=== PATIENT | female | born 1975 | race Two or more races ===

== ENCOUNTER 2022-01-06 10:54 | Emergency (ER) | payer OTHER ==
--- OUTSIDE RECORDS SUMMARY | 2022-01-06 10:57 | XMS REPORT | Continuity of Care Document ---
:1975 Author Organization [facility] t Address [address] [place] [address] Care Team Providers Name Role Phone Brook Bee Attending Clinician Unavailable Hubert SMITH Attending Clinician HUBERT Attending Clinician Unavailable Estelle Attending Clinician Cy SMITH, Marley Attending Clinician Unavailable Payers Payer Name Policy Type Policy Number Effective Date Expiration Date S ource Problems Condition Condition Condition Status Onset Resolution Last Treating Co mments Source Name Details Category Date Date Treatment Clinician Date Adrenal Adrenal Disease Active 2015-08 Univers insufficie insufficie 1-07 it y of ncy, ncy, 00:00: [place] primary primary 00 Medical Branch Primary Primary Disease Active Univers hypothyroi hypothyroi 2-23 it y of dism dism 00:00: [place] [address] Medical Branch Primary Primary Disease Active Univers hypothyroi hypothyroi 2-23 it y of dism dism 00:00: [place] [address] Medical Branch Multiple Multiple Disease Active Unive rs thyroid thyroid 2- ity of nodules nodules 00:00: [address] Allergies, Adverse Reactions, Alerts Allergy Allergy Status Severity Reaction(s) Onset Inactive Treating Comm ents Source Name Type Date Date Clinician NO KNOWN Drug Active Univers ALLERGIE Class ity of S [facility] Social History Social Habit Start Date Stop Date Quantity Comments Source Tobacco use and 2019-07-24 2019-07-24 Never used Universit y of exposure 00:00:00 00:00:00 [facility] Alcohol intake 2019-07-24 2019-07-24 Current University of 00:00:00 00:00:00 non-drinker of [facility] alcohol [place] (finding) Sex Ass[birth year] Universit y of 00:00:00 00:00:00 [facility] Smoking Status Start Date Stop Date Source Never smoker [facility] Medications Ordered Filled Start Stop Current Ordering Indication Dosage Frequency Signature Comments Components Source Medication Medication Date Date Medication? Clinician (SIG) Name Name SYNTHROID 2020- Yes [id number] TAKE 1 Un kaye 88 mcg 0-07 TABLET BY ity of tablet 00:00: MOUTH [place] 00 EVERY DAY Medical IN THE [place] MORNING SYNTHROID 2020-1 Yes [id number] TAKE 1 Un kaye 88 mcg 0-07 TABLET BY ity of tablet 00:00: MOUTH [place] 00 EVERY DAY Medical IN THE [place] MORNING SYNTHROID 2020- Yes [id number] TAKE 1 Un kaye 88 mcg 0-07 TABLET BY ity of tablet 00:00: MOUTH [place] 00 EVERY DAY Medical IN THE [place] MORNING SYNTHROID 2020-1 Yes [id number] TAKE 1 Un kaye 88 mcg 0-07 TABLET BY ity of tablet 00:00: MOUTH [place] 00 EVERY DAY Medical IN THE [place] MORNING SYNTHROID 2020-1 Yes [id number] TAKE 1 Un akye 88 mcg 0-07 TABLET BY ity of tablet 00:00: MOUTH [place] 00 EVERY DAY Medical IN THE [place] MORNING Azithromyci Azithromyci 2020-0 2020- No Na Bee 2 tablets Common n n 8-17 08-18 Spirit 00:00: 00:00 - [facility] 00 :00 [facility] levothyroxi 2020-0 Yes [id number] 88ug Take 1 Univers ne 7-06 tablet by ity of (SYNTHROID) 00:00: mouth [place] 88 mcg 00 every Medical tablet morning. Branch levothyroxi 2020-0 Yes [id number] 88ug Take 1 Univers ne 7-06 tablet by ity of (SYNTHROID) 00:00: mouth [place] 88 mcg 00 every Medical tablet morning. [place] levothyroxi 2020-0 Yes [id number] 88ug Take 1 Univers ne 7-06 tablet by ity of (SYNTHROID) 00:00: mouth [place] 88 mcg 00 every Medical tablet morning. [place] levothyroxi 0 Yes [id number] 88ug Take 1 Univers ne 7-06 tablet by ity of (SYNTHROID) 00:00: mouth [place] 88 mcg 00 every Medical tablet morning. [place] levothyroxi 0 2020- No [id number] 88ug Take 1 Univers ne 7- 10-07 tablet by ity of (SYNTHROID) 00:00[place] 00[place] 88 [place] 00 :00 every Medical tablet morning. [place] levothyroxi 0 2020- No [id number] 88ug Take 1 Univers ne 7- 10-07 tablet by ity of (SYNTHROID) 00:00[place] 00:[place] 88 m[place] 00 :00 every Medical tablet morning. [place] hydrocortis 2018-08 Yes [id number] Take one Univers one 10 mg 2-23 tablet at ity o f tablet 00:00: 7-8 am and [place] 00 half a Medical tablet at Branch 2-3 PM levothyroxi 2018-08 Yes [id number] 88ug Take 1 Univers ne 2-23 tablet by ity of (SYNTHROID) 00:00: mouth [place] 88 mcg 00 every Medical tablet morning. [place] hydrocortis 2018-08 Yes [id number] Take one Univers one 10 mg 2-23 tablet at ity o f tablet 00:00: 7-8 am and [place] 00 half a Medical tablet at Branch 2-3 PM hydrocortis 2018-08 Yes [id number] Take one Univers one 10 mg 2-23 tablet at ity o f tablet 00:00: 7-8 am and [place] 00 half a Medical tablet at Branch 2-3 PM hydrocortis 2018-08 Yes [id number] Take one Univers one 10 mg 2-23 tablet at ity o f tablet 00:00: 7-8 am and [place] 00 half a Medical tablet at Branch 2-3 PM hydrocortis 2018-08 Yes [id number] Take one Univers one 10 mg 2-23 tablet at ity o f tablet 00:00: 7-8 am and [place] 00 half a Medical tablet at Branch 2-3 PM hydrocortis 2018-08 Yes [id number] Take one Univers one 10 mg 2-23 tablet at ity o f tablet 00:00: 7-8 am and [place] 00 half a Medical tablet at Branch 2-3 PM hydrocortis 2018-08 Yes [id number] Take one Univers one 10 mg 2-23 tablet at ity o f tablet 00:00: 7-8 am and [place] 00 half a Medical tablet at Branch 2-3 PM hydrocortis 2019 Yes [id number] Take one Univers one 10 mg 2-23 tablet at ity o f tablet 00:00: 7-8 am and [place] 00 half a Medical tablet at Branch 2-3 PM hydrocortis 2018-08 Yes [id number] Take one Univers one 10 mg 2-23 tablet at ity o f tablet 00:00: 7-8 am and [place] 00 half a Medical tablet at Branch 2-3 PM hydrocortis 2018-08 Yes [id number] Take one Univers one 10 mg 2-23 tablet at ity o f tablet 00:00: 7-8 am and [place] 00 half a Medical tablet at Branch 2-3 PM levothyroxi 2018-08 2020- No [id number] 88ug Take 1 Univers ne 2-23 07-06 tablet by ity of (SYNTHROID) 00:00[place] 00:[place] 88 mcg 00 :00 every Medical tablet morning. [place] SYNTHROID Yes [id number] TAKE 1 Un kaye 88 mcg 8-28 TABLET BY ity of tablet 00:00: MOUTH [place] 00 EVERY Medical MORNING Branch Metronidazo Metronidazo 2017-08 2020- No Na Bee 1 tablet Common le le 0-04 08-13 Spirit 00:00: 00:00 - CHI 00 :00 [facility] hydrocortis Yes [id number] Take one Univers one 10 mg 9-19 tablet at ity o f tablet 00:00: 7-8 am and [place] 00 half a Medical tablet at Branch 2-3 PM levothyroxi 2019- No [id number] 88ug Take 1 Univers ne 9-19 08-28 tablet by ity of (SYNTHROID) 00:00: 00:[place] 88 mcg 00 :00 every Medical tablet morning. [place] Levothyroxi Levothyroxi Yes Na Bee 1 tablet Common ne Sodium ne Sodium 2-14 on an Spir it 00:00: empty - CHI 00 stomach in [facility] Xanax Xanax Yes Na Bee 1 tablet Common [facility] Lexapro Lexapro Yes Na Bee 1 tablet Co mmon [facility] Sertraline Sertraline Yes Na Bee 1 tablet Common HCl HCl [facility] Immunizations Ordered Filled Immunization Date Status Comments Sour e Immunization Name Name Influenza Virus 2019-05-24 Completed Universit y of Vaccine 00:00:00 [facility] Influenza Virus 2019-05-24 Completed Universit y of Vaccine 00:00:00 [facility] Influenza Virus 2019-05-24 Completed Universit y of Vaccine 00:00:00 [facility] Influenza Virus 2019-05-24 Completed Universit y of Vaccine 00:00:00 [facility] Influenza Virus 2019-05-24 Completed Universit y of Vaccine 00:00:00 [facility] Influenza Virus 2019-05-24 Completed Universit y of Vaccine 00:00:00 [facility] Influenza Virus 2019-05-24 Completed Universit y of Vaccine 00:00:00 [facility] Influenza Virus 2019-05-24 Completed Universit y of Vaccine 00:00:00 [facility] Influenza Virus 2019-05-24 Completed Universit y of Vaccine 00:00:00 [facility] Influenza Virus 2019-05-24 Completed Universit y of Vaccine 00:00:00 [facility] Afluria single dose Afluria single dose 2019-04-11 Completed Common Spirit - 00:00:00 [facility] Procedures This patient has no known procedures. Encounters Start End Encounter Admission Attending Care Care Encounter Source Date/Time Date/Time Type Type Clinicians Facility Department ID 2021-12-31 Outpatient Bee, Na STLC STLC [id number] Common 15:13:01 [facility] 2021-10-09 Outpatient Bee, Na STLC STLC [id number] 2 Common 09:38:01 [facility] 2021-10-07 Outpatient Bee, Na STLMLC STLC [id number] 2 Common 10:35:00 [facility] 2021-08-27 Outpatient Bee, Na STLC STLC [id number] 2 Common 13:47:54 [facility] 2021-08-27 Outpatient Bee, Na STLC STLC [id number] 2 Common 13:40:44 [id number] [facility] 2021-08-27 Outpatient Bee, Na STLMLC STLMLC [id number] 2 Common 11:34:19 [id number] [facility] 2021-08-27 Outpatient Bee, Na STLMLC STLMLC [id number] 2 Common 11:18:14 [id number] [facility] 2021-11-03 2021-11-03 ambulatory STLMLC STLMLC [id number] Common 00:00:00 00:00:00 [facility] 2021-03-20 2021-03-20 Outpatient STLMLC STLMLC [id number] Common 00:00:00 00:00:00 [facility] 2020-11-19 2020-11-19 [facility] [id number] Univers 00:00:00 00:00:00 Germaine Szymanski [id number] i ty [id number] [phone] [address] 2020-10-08 2020-10-08 [facility] [id number] Univers 10:00:00 10:00:00 GERMAINE [id number] [facility] 2020-10-08 2020-10-08 [facility] [id number] Univers 10:00:00 10:00:00 GERMAINE [facility] 2020-09-12 2020-09-12 [facility] [id number] Univers 00:00:00 00:00:00 Germaine [place] [id number] [id number] [phone] Az dical [address] 2020-08-08 2020-08-08 Outpatient STLMLC STLMLC [id number] Common 00:00:00 00:00:00 [facility] 2020-08-07 2020-08-07 Outpatient STLMLC STLMLC [id number] Common 00:00:00 00:00:00 [facility] 2020-07-31 2020-07-31 Outpatient R HUBERT [facility] [id number] Univers 15:00:00 15:00:[address] [facility] 2020-07-31 2020-07-31 [facility] [id number] Univers 15:00:00 15:00:[address] [facility] 2020-06-24 2020-06-24 Outpatient R [facility] [id number] Univers 08:00:00 08:00:[id number] [facility] 2020-06-24 2020-06-24 [facility] [id number] Univers 08:00:00 08:00:00 [facility] 2020-06-19 2020-06-19 [facility]phone [facility] [id number] Univers 00:00:00 00:00:00 Germaine [place] [id number] [id number] [phone] Az dicga nal [address] [place] [address] 2020-05-08 2020-05-08 [facility] [id number] Univers 00:00:00 00:00:00 [place] [id number] [id number] [phone] Az dicga nal [address] [place] [address] 2020-05-03 2020-05-03 [facility] [id number] Univers 00:00:00 00:00:00 [place] [id number] [id number] [phone] [address] 2020-05-01 2020-05-01 [facility] [id number] Univers 11:30:00 11:30:[address] [facility] 2020-05-01 2020-05-01 [facility] [id number] Univers 11:30:00 11:30:[address] [facility] 2020-03-18 2020-03-18 Outpatient [facility] [id number] Common 13:00:00 13:00:[address] Sp[address] [facility] 2020-03-16 2020-03-16 Outpatient [facility] [id number] Common 12:47:00 12:47:[address] Sp[address] [facility] 2020-03-07 2020-03-07 Outpatient [facility] [id number] Common 11:35:00 11:35:[address] Sp[address] [facility] 2020-03-04 2020-03-04 Outpatient [facility] [id number] Common 11:00:00 11:00:[address] Sp[address] [facility] 2020-02-14 2020-02-14 [facility] [id number] Univers 09:00:00 09:00:00 [facility] [id number] [facility] 2020-02-14 2020-02-14 [facility] [id number] Univers 09:00:00 [facility]00[facility] 2020-02-02 2020-02-02 [facility] [id number] Univers 00:00:00 00:00:00 Geeta Szymanski [id number] [id number] [phone] Az dical nal [address] [facility] 2019-12-20 2019-12-20 [facility] [id number] Univers 10:00:00 10:00:00 [facility] 2019-11-07 2019-11-07 [facility]phone [facility] [phone] [id number] Univers 00:00:00 00:00:00 Germaine Szymanski [id number] [id number] [phone] Az dical nal [address] [facility] 2019-04-11 2019-04-11 Outpatient [facility] [id number] Common 09:40:00 09:40:[address] Sp[address] [facility] 2019-04-04 2019-04-04 Outpatient [facility] [id number] Common 14:06:00 14:06:00 t [facility] 2019-03-29 2019-03-29 Librado Benoit [facility] [id number] Univers 00:00:00 00:00:00 Audrey Szymanski [id number] i ty [place] [id number] Christiano Szymanski [phone] Az dical nal [address] [facility] 2019-03-13 2019-03-13 Outpatient [facility] [id number] Common 13:30:00 13:30:00 t [facility] 2019-02-08 2019-02-08 Outpatient [facility] [id number] Common 10:24:00 10:24:[address] Sp[address] [facility] 2019-02-06 2019-02-06 Outpatient [facility] [id number] Common 10:40:00 10:40:[address] Sp[address] [facility] Results This patient has no known results.
[2022-01-06] MEDS ORDERED: IBUPROFEN 200 MG TAB PO ONE (11:41)
[2022-01-06] MEDS ORDERED: ACETAMINOPHEN 500 MG TAB ONE (11:41)
--- NOTE | 2022-01-06 12:21 | RAD REPORT ---
EXAM DESCRIPTION: RAD - Foot Right 3 View - 01/06/2022 12:09 pm CLINICAL HISTORY: PAIN COMPARISON: No comparisons FINDINGS: No fracture, dislocation or periosteal reaction. No acute or destructive bone process. The re is thickening of the soft tissues along the medial first metatarsal head with a very slight valgus angulation of the first proximal phalanx. No plantar spur. No air or foreign body in the soft tissues. IMPRESSION: Bunion deformity at the first MTP joint with no acute or destructive finding. No fracture or acute right foot finding.
--- NOTE | 2022-01-06 12:24 | RAD REPORT ---
EXAM DESCRIPTION: RAD - Knee Right 3 View - 01/06/2022 12:09 pm CLINICAL HISTORY: PAIN COMPARISON: No comparisons FINDINGS: No fracture, dislocation or periosteal reaction.No joint effusion seen. No joint space tiffanie rowing. No foreign body or other soft tissue abnormality. IMPRESSION: Negative right knee. Clinical concerns for internal derangement or occult bony injury could be further assessed with MR im aging.
--- NOTE | 2022-01-06 12:25 | RAD REPORT ---
EXAM DESCRIPTION: RAD - Knee Left 3 View - 01/06/2022 12:09 pm CLINICAL HISTORY: PAIN COMPARISON: No comparisons FINDINGS: No fracture, dislocation or periosteal reaction.No joint effusion seen. No joint space tiffanie rowing. Minimal spurring seen along the articular margins patella. No soft tissue abnormality seen. IMPRESSION: Minimal degenerative change involving the articular margins of the patella. No other sig nificant bone or joint finding. Clinical concerns for internal derangement or occult bony injury could be further assessed with MR im aging.
--- NOTE | 2022-01-06 12:45 | ER ---
Nurse's Notes [facility] Name: Chelsi Reis Age: 46 yrs Sex: Female : 1975 Arrival Date: 01/06/2022 Time: 10:57 Bed 11 Private MD: Diagnosis: Pain in left knee;Pain in right knee;Bunion of right foot-right great toe Presentation: 01/06 11:03 Chief complaint: Patient states: she has been having knee pain for "some time" however ap3 yesterday patient reports she was unable to bend her right knee much. Patient reports pain in Bilateral knees, but states the right knee pain is much worse than the left. Patient denies any recent trauma to the knees. Coronavirus screen: At this time, the client does not indicate any symptoms associated with coronavirus-19. Ebola Screen: No symptoms or risks identified at this time. Initial Sepsis Screen: Does the patient meet any 2 criteria? No. Patient's initial sepsis screen is negative. Does the patient have a suspected source of infection? No. Patient's initial sepsis screen is negative. Risk Assessment: Do you want to hurt yourself or someone else? Patient reports no desire to harm self or others. Onset of symptoms was 2021. 11:03 Method Of Arrival: Wheelchair ap3 11:03 Acuity: MARIO 4 ap3 Triage Assessment: 11:06 General: Appears uncomfortable, Behavior is calm, cooperative, appropriate for age. ap3 Pain: Complains of pain in right knee Pain currently is 0 out of 10 on a pain scale. at worst was 9 out of 10 on a pain scale. Aggravated by increased activity, repositioning, weight bearing. Neuro: Level of Consciousness is awake, alert, obeys commands, Oriented to person, place, time, situation, Appropriate for age Speech is normal. Cardiovascular: Patient's skin is warm and dry. Respiratory: Airway is patent Respiratory effort is even, unlabored, Respiratory pattern is regular, symmetrical. Musculoskeletal: Reports pain in right and left knees. 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 - Social history:: Smoking status: Patient denies any tobacco usage or history of. Screenin:07 Abuse screen: Denies threats or abuse. Nutritional screening: No deficits noted. ap3 Tuberculosis screening: No symptoms or risk factors identified. Vital Signs: 11:03 BP 107 / 70; Pulse 83; Resp 17; Temp 98.6; Pulse Ox 100% ; Weight 54.43 kg; Height 4 ap3 ft. 3 in. (129.54 cm); 11:03 Body Mass Index 32.44 (54.43 kg, 129.54 cm) ap3 ED Course: 10:57 Patient arrived in ED. am2 11:02 Sharad Mccracken PA is PHCP. cp 11:03 Xavier Leone MD is Attending Physician. cp 11:05 Triage completed. ap3 11:08 Arm band placed on right wrist. ap3 11:11 Viviana Lock, ASHISH is Primary Nurse. iw 12:11 XRAY Knee RIGHT 3 view In Process Unspecified. EDMS 12:11 XRAY Foot RIGHT 3 View In Process Unspecified. EDMS 12:11 Knee Left 3 View In Process Unspecified. EDMS 12:43 Devyn Dawson MD is Referral Physician. cp 12:45 Erasto Guillory DPM is Referral Physician. cp Administered Medications: 12:13 Drug: Tylenol 500 mg Route: PO; iw 12:30 Follow up: Response: No adverse reaction iw 12:13 Drug: Ibuprofen 600 mg Route: PO; iw 12:30 Follow up: Response: No adverse reaction iw Outcome: 12:45 Discharge ordered by . cp 13:08 Patient left the ED. iw Signatures: Dispatcher [employer] EDMS Viviana Lock, RN RN iw Sharad Mccracken PA PA cp Sissy Brown am2 Sissy Nix RN RN ap3
--- NOTE | 2022-01-06 12:45 | EDPHYS ---
Physician Documentation [facility] Name: Chelsi Reis Age: 46 yrs Sex: Female : 1975 Arrival Date: 01/06/2022 Time: 10:57 Bed 11 Private MD: ED Physician Xavier Leone HPI: 01/06 11:30 This 46 yrs old Female presents to ER via Wheelchair with complaints of Knee Pain. cp 11:30 The patient presents with pain, that is chronic. cp 11:30 The complaints affect the left knee, right knee. Onset: The symptoms/episode cp began/occurred 6 month(s) ago, and became worse yesterday, pain to right knee. 11:30 Associated signs and symptoms: Pertinent positives: pain to right great toe, Pertinent cp negatives fever, numbness, weakness, injury. 11:30 Treatment prior to arrival includes: no previous treatment. cp [employer]: 11:08 LMP 12/24/2021 ap3 Historical: - Allergies: 11:05 No Known Allergies; ap3 - Home Meds: 11:05 None [Active]; ap3 - PMHx: 11:05 None; ap3 - PSHx: 11:06 Appendectomy; ap3 - Immunization history:: Client reports receiving the 2nd dose of the Covid vaccine. - Social history:: Smoking status: Patient denies any tobacco usage or history of. ROS: 11:35 Constitutional: Negative for body aches, chills, fever, poor PO intake. cp 11:35 Neck: Negative for pain with movement, pain at rest, stiffness. cp 11:35 Respiratory: Negative for cough, shortness of breath, wheezing. 11:35 Abdomen/GI: Negative for abdominal pain, nausea, vomiting, and diarrhea. 11:35 Back: Negative for pain at rest, pain with movement. 11:35 MS/extremity: Positive for pain, of the left knee and right knee and right foot, Negative for injury or acute deformity, decreased range of motion, paresthesias. 11:35 Skin: Negative for cellulitis, rash. 11:35 Neuro: Negative for altered mental status, headache, numbness, tingling, weakness. 11:35 All other systems are negative. Exam: 11:40 Constitutional: The patient appears in no acute distress, alert, awake, non-toxic, well cp developed, well nourished. 11:40 Head/Face: Normocephalic, atraumatic. cp 11:40 Neck: ROM/movement: is normal, is supple, without pain, no range of motions limitations. 11:40 Chest/axilla: Inspection: normal. 11:40 Cardiovascular: Rate: normal, Rhythm: regular. 11:40 Respiratory: the patient does not display signs of respiratory distress, Respirations: normal, no use of accessory muscles, no retractions. 11:40 Abdomen/GI: Exam negative for discomfort, distension, guarding, Inspection: abdomen appears normal. 11:40 Back: pain, is absent, ROM is normal. 11:40 Musculoskeletal/extremity: Extremities: noted in the right foot: rash, tenderness and mild hallux valgus deformity of right first metatarsal phalangeal joint, ROM: full passive range of motion, in the right knee and left knee, limited passive range of motion due to pain, in the right knee, Pulses: noted to be 2+ in the right dorsalis pedis artery and left dorsalis pedis artery, Joints: the right knee displays painful range of motion, tenderness, the left knee displays tenderness. 11:40 Skin: cellulitis, is not appreciated, no rash present. Vital Signs: 11:03 BP 107 / 70; Pulse 83; Resp 17; Temp 98.6; Pulse Ox 100% ; Weight 54.43 kg; Height 4 ap3 ft. 3 in. (129.54 cm); 11:03 Body Mass Index 32.44 (54.43 kg, 129.54 cm) ap3 MDM: 11:14 Patient medically screened. cp 12:00 Differential diagnosis: dislocation, closed fracture, tendonitis. cp 12:45 Data reviewed: vital signs, nurses notes, radiologic studies, plain films. cp 12:45 Test interpretation: by ED physician or midlevel provider: plain radiologic studies. 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 01/06 11:26 Order name: XRAY Knee RIGHT 3 view; Complete Time: 12:43 cp 01/06 12:43 Interpretation: Report reviewed. cp 01/06 11:26 Order name: XRAY Foot RIGHT 3 View; Complete Time: 12:43 cp 01/06 12:43 Interpretation: Report reviewed. cp 01/06 11:45 Order name: Knee Left 3 View; Complete Time: 12:43 EDMS Administered Medications: 12:13 Drug: Tylenol 500 mg Route: PO; iw 12:30 Follow up: Response: No adverse reaction iw 12:13 Drug: Ibuprofen 600 mg Route: PO; iw 12:30 Follow up: Response: No adverse reaction iw Disposition Summary: 01/06/22 12:45 Discharge Ordered Location: Home cp Problem: new cp Symptoms: have improved cp Condition: Stable cp Diagnosis - Pain in left knee cp - Pain in right knee cp - Bunion of right foot - right great toe cp Followup: cp - With: Devyn Dawson MD - When: 2 - 3 days - Reason: knee pain Followup: cp - With: Erasto Guillory DPM - When: 2 - 3 days - Reason: right great toe pain Discharge Instructions: - Discharge Summary Sheet cp - Elastic Bandage and RICE Therapy cp - How to Use a Knee Brace cp - Acute Knee Pain, Adult cp Forms: - Medication Reconciliation Form cp - Thank You Letter cp - Antibiotic Education cp - Prescription Opioid Use cp Prescriptions: - Diclofenac Sodium 75 mg Oral Tablet Sustained Release - take 1 tablet by ORAL route 2 times per day; 30 tablet; Refills: 0, Product cp Selection Permitted Addendum: 01/07/2022 23:18 Co-signature as Attending Physician, Xavier Leone MD. r n Signatures: Dispatcher [employer] EDViviana Carmona, RN ASHISH iw Xavier Leone MD MD rn Page, Corey, PA PA cp Sissy Nix RN RN ap3 Corrections: (The following items were deleted from the chart) 01/06 13:08 12:53 Crutches ordered. cp iw
[2022-01-06 13:34] VITALS: BP 107/70; TEMP 98.6; O2SAT 100
== END 2022-01-06 13:08 | disposition home or self-care (01) ==
LOC: ER 10:54
DX: M25.562 Pain in left knee (principal); M25.561 Pain in right knee; M21.611 Bunion of right foot
CPT/HCPCS: 99283